=== PATIENT | male | born 1960 ===

== ENCOUNTER 2016-08-27 06:22 | Day surgery (SDC) | payer MEDICAID ==
[2016-08-27 06:54] VITALS: BMI 35.7
[2016-08-27] MEDS ORDERED: Propofol 10 mg/ml Inj (20 ML) ONE (08:06)
[2016-08-27 08:48] VITALS: TEMP 97.8
[2016-08-27 08:56] VITALS: O2SAT 100
[2016-08-27 09:14] VITALS: PULSE 89
[2016-08-27 09:22] VITALS: BP 100/58; RESP 10
== END 2016-08-27 09:42 | disposition home or self-care (01) ==
LOC: C.ENDO 06:22
PROVIDERS: ATTEND Internal Medicine Gastroenterology
DX: R19.5 Other fecal abnormalities (principal); D12.2 Benign neoplasm of ascending colon; D12.3 Benign neoplasm of transverse colon; I10 Essential (primary) hypertension; J45.909 Unspecified asthma, uncomplicated
CPT/HCPCS: 45380; 45385; 88305; J2704

== ENCOUNTER 2017-03-27 07:21 | Day surgery (SDC) | payer MEDICAID ==
[2017-03-27] MEDS ORDERED: Propofol 10 mg/ml Inj (20 ML) ONE (09:16)
[2017-03-27] MEDS ORDERED: Lactated Ringer's 500 ML IV SCH (09:30)
[2017-03-27 10:02] VITALS: TEMP 97.8
[2017-03-27 10:32] VITALS: RESP 12
[2017-03-27 10:54] VITALS: BP 104/67; PULSE 67; O2SAT 100
== END 2017-03-27 10:53 | disposition home or self-care (01) ==
LOC: C.ENDO 07:21 → EDSTATUS 10:30 → C.ENDO 10:53
PROVIDERS: ATTEND Internal Medicine Gastroenterology
DX: R19.7 Diarrhea, unspecified (principal); K64.0 First degree hemorrhoids
CPT/HCPCS: 45380; 87045; 87230; 88305; J2704; J3010; J7120